=== PATIENT | female | born 1940 | race Caucasian/White ===

== ENCOUNTER 2021-11-12 14:22 | Outpatient (CLI) | payer OTHER, SELFPAY ==
[2021-11-12 14:34] LABS: Albumin* 4.5 g/dL (3.3-5.0); Chloride* 103 mmol/L (96-114); Potassium* 4.5 mmol/L (3.6-5.1); Sodium* 137 mmol/L (135-149)
[2021-11-12 14:36] LABS: Cholesterol* 300 mg/dL (90-199)
[2021-11-12 14:37] LABS: Alanine Aminotransferase* 13 U/L (4-35); Alkaline Phosphatase* 124 U/L (40-150); Aspartate Amino Transferase* 24 U/L (12-35); Bilirubin Total* 0.5 mg/dL (0.1-1.5); Blood Urea Nitrogen* 14 mg/dL (7-30); Carbon Dioxide* 24 mmol/L (20-32); Creatinine* 0.8 mg/dL (0.5-1.5); Estimated Glomerular Filt Rate 74 ml/min; Glucose* 93 mg/dL (60-115); Total Protein* 7.7 g/dL (6.0-8.3); Triglycerides* 158 mg/dL (40-149)
[2021-11-12 14:38] LABS: Calcium* 9.3 mg/dL (8.4-10.6); HDL Cholesterol* 76 mg/dL (>=50); LDL Cholesterol Calculated 192 mg/dL (<100)
== END 2021-11-12 14:23 | disposition home or self-care (01) ==
PROVIDERS: PCP Family Medicine; Visit Provider Family Medicine
DX: Z00.00 Encounter for general adult medical examination without abnormal findings (principal); E78.5 Hyperlipidemia, unspecified; I10 Essential (primary) hypertension
CPT/HCPCS: 80053; 80061

== ENCOUNTER 2023-01-05 14:48 | Outpatient (CLI) | payer OTHER, SELFPAY | END 2023-01-05 14:49 | disposition home or self-care (01) | PROVIDERS: PCP Physician Assistant Medical; Visit Provider Physician Assistant Medical | DX: E78.5 Hyperlipidemia, unspecified (principal); I10 Essential (primary) hypertension; M81.0 Age-related osteoporosis without current pathological fracture | CPT/HCPCS: 80053; 80061; 84443 ==

== ENCOUNTER 2023-08-31 10:03 | Outpatient (CLI) | payer OTHER, SELFPAY ==
--- NOTE | 2023-08-31 11:00 | CRLHL7_ITS ---
For Patients: As a result of the Century Cures Act, medical imaging exams and procedure reports are released immediately into your electronic medical record. You may view this report before your referring provider. If you have questions, please contact your health care provider. DXA BONE MINERAL DENSITY STUDY Reason for exam: Asymptomatic menopausal state. Osteopenia. Current height (in): 125. Weight (lb): 61. Menopause age: 57. Ethnicity: White. 1. Have you had a previous hip or vertebral fracture? No. 2. Have you had any fractures during your adult life which did not result from significant trauma (e.g., auto accident)? No. 3. Did either of your parents have a hip fracture? No. 4. Do you smoke? No. 5. Have you ever taken Glucocorticoids? No. 6. Do you have rheumatoid arthritis? No. 7. Do you have secondary osteoporosis? No. 8. Do you drink 3 or more alcoholic drinks per day? No. 9. Are you being treated for osteoporosis? No. 10. Have you ever taken any of the following medications: Actonel, Evista, Fosamax, Miacalcin, Reclast, Boniva, Forteo, HRT (i.e. estrogen/hormone therapy), Protelos, Prolia, Vitamin D, Calcium, other ??? please specify. ANSWER: Yes, Fosamax, vitamin D and calcium. 11. Do you have any of the following medical conditions: Anorexia or bulimia, asthma or emphysema, end stage renal disease, hyperparathyroidism, any seizure disorders, cancer, inflammatory bowel diseases, hysterectomy, other ??? please specify. ANSWER: No. 12. What was your maximum height (inches)? 61. 13. Do you perform weight bearing exercise regularly? No. 14. Do you regularly consume dairy products? No. 15. Do you drink caffeinated beverages? Yes. 16. At what age did your period start? 15. 17. Are you premenopausal? No. 18. How many full term pregnancies have you had? 3. 19. Have you ever missed your period for more than 6 months in a row (not including or menopause)? No. TECHNIQUE: Bone mineral density study was performed using the [employer]. FINDINGS: The results of the study expressed as bone mineral density (BMD) are as follows: Lumbar spine L1-L2, L4: BMD: 1.139 g/cm2. T-score: 1.0. Z-score: 3.8. Neck Left: BMD: 0.502 g/cm2. T-score: -3.1. Z-score: -0.6. Right: BMD: 0.500 g/cm2. T-score: -3.1. Z-score: -0.6. Total Left: BMD: 0.574 g/cm2. T-score: -3.0. Z-score: -0.7. Right: BMD: 0.608 g/cm2. T-score: -2.7. Z-score: -0.4. IMPRESSION: Osteoporosis. *Comparison exams done prior to 08/2019 were performed on different unit, [employer]. COMPARISON: Compared with scan of 01/30/2019, the bone mineral density has decreased by 1.5 percent at the spine and increased by 7.6 percent at the hip. Compared with scan of 11/26/2016, the bone mineral density has increased by 4.5 percent at the spine and decreased by 6.2 percent at the hip. Nimesh Michaud M.D. Diagnostic Radiologist [email or web address] SP/Dictated by: Nimesh Michaud MD @ 08/31/2023 12:19:00 PM (Electronically Signed)
== END 2023-08-31 10:04 | disposition home or self-care (01) ==
LOC: RAD 10:06
PROVIDERS: PCP Physician Assistant Medical; Visit Provider Physician Assistant Medical
DX: Z78.0 Asymptomatic menopausal state (principal); M85.89 Other specified disorders of bone density and structure, multiple sites; M81.0 Age-related osteoporosis without current pathological fracture
CPT/HCPCS: 77080

== ENCOUNTER 2023-09-22 09:56 | Outpatient (CLI) | payer OTHER, SELFPAY | END 2023-09-22 09:57 | disposition home or self-care (01) | LOC: NFLDREF 09-24 10:40 | PROVIDERS: PCP Physician Assistant Medical; Referring Provider Physician Assistant Medical; Visit Provider Physician Assistant Medical | DX: R79.89 Other specified abnormal findings of blood chemistry (principal); M81.0 Age-related osteoporosis without current pathological fracture | CPT/HCPCS: 82306 ==

== ENCOUNTER 2024-01-27 13:11 | Outpatient (CLI) | payer OTHER, SELFPAY | END 2024-01-27 13:12 | disposition home or self-care (01) | LOC: NFLDREF 01-30 19:24 | PROVIDERS: PCP Physician Assistant Medical; Referring Provider Physician Assistant Medical; Visit Provider Physician Assistant Medical | DX: R79.89 Other specified abnormal findings of blood chemistry (principal); I10 Essential (primary) hypertension; I25.10 Atherosclerotic heart disease of native coronary artery without angina pectoris; E78.2 Mixed hyperlipidemia; M51.362 Other intervertebral disc degeneration, lumbar region with discogenic back pain and lower extremity pain; Z13.29 Encounter for screening for other suspected endocrine disorder | CPT/HCPCS: 80053; 80061; 82306; 84443 ==

== ENCOUNTER 2024-06-26 14:35 | Outpatient (CLI) | payer OTHER, SELFPAY | END 2024-06-26 14:36 | disposition home or self-care (01) | LOC: FRMREF 14:35 | PROVIDERS: PCP Physician Assistant Medical; Visit Provider Family Medicine | DX: N17.9 Acute kidney failure, unspecified (principal) | CPT/HCPCS: 80048 ==

== ENCOUNTER 2024-07-25 10:52 | Outpatient (CLI) | payer OTHER, SELFPAY | END 2024-07-25 10:53 | disposition home or self-care (01) | LOC: NFLDREF 07-29 04:12 | PROVIDERS: PCP Physician Assistant Medical; Referring Provider Physician Assistant Medical; Visit Provider Family Medicine | DX: N30.90 Cystitis, unspecified without hematuria (principal) | CPT/HCPCS: 87086 ==

== ENCOUNTER 2024-08-11 14:42 | Emergency (ER) | payer OTHER, SELFPAY ==
[2024-08-11] VITALS (11 sets, daily range): BP systolic 177; BP diastolic 85; PULSE 71–87; RESP 16; TEMP 36.6; O2SAT 90–95
--- NOTE | 2024-08-11 14:57 | ED.NURSE ---
Stroke Code paged. MD with patient states that we are not ready to proceed to CT and is attempting to gather more information.
--- NOTE | 2024-08-11 15:11 | ED.GENADULT ---
HPI - General Adult General Chief complaint: Altered Mental Status Stated complaint: High BP, sent by [facility] Time Seen by Provider: 08/11/24 14:55 History of Present Illness HPI narrative: Arrives with confusion and unsteady gait. Son reports that the patient was recently treated for UTI and was confused during that time also . Son reports patient was fine upon waking this AM but suddenly became confused at 10 am. Patient is alert, ambulatory with unsteady gait, speech is clear but patient unable to self-report symptoms in triage and is disoriented to time and place. 84-year-old woman presenting to the emergency department with concern of confusion. I was contacted by primary care provider of concerns necessitating further workup. Suspicion is delirium. Arrives to this emergency department and stroke code was initially activated. This was canceled however as it appears that there are no symptoms beyond confusion and that this has been present intermittently for some time. Escalated over the last 2-3 days. No fevers have been noted. About 5 hours prior to arrival here in the emergency department after taking a new or changed Depression medication became increasingly angry and confused per her son. Today in clinic was confused being very upset when recommended to go to the hospital and believed she had been In a house at that time. 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 History also depression. Concerns expressed prior about delirium Versus dementia. Two weeks ago was given a course of nitrofurantoin with potential urinary tract infection; Admittedly this was a soft call. Micro grew out greater than 100,000 colonies of mixed g positives. No further workup then was done. This last year son moved in with her to care for her. He notes that she has been increasingly accusatory and agitated related to his cares. Related Data Home Medications ?Medication ?Instructions ?Recorded ?Confirmed aspirin 81 mg tablet,delayed 81 mg PO QDAY 11/11/21 08/11/24 release (Enteric Coated Aspirin) fluticasone 500 mcg-salmeterol 50 inhalation 06/26/24 08/11/24 mcg/dose blistr powdr for inhalation (Wixela Inhub) ipratropium 0.5 mg-albuterol 3 mg ml inhalation 06/26/24 08/11/24 (2.5 mg base)/3 mL nebulization soln Previous Rx's ?Medication ?Instructions ?Recorded losartan 50 mg-hydrochlorothiazide 1 tab PO QDAY #90 tabs 01/27/24 12.5 mg tablet pravastatin 20 mg tablet 40 mg (2 x 20 mg) PO QHS #90 tabs 07/20/24 mirtazapine 15 mg tablet 15 mg PO QHS #30 tabs 07/25/24 escitalopram oxalate 10 mg tablet 10 mg PO QDAY #30 tabs 08/10/24 (Lexapro) Allergies Allergy/AdvReac Type Severity Reaction Status Date / Time Penicillins Allergy Mild Rash Verified 08/11/24 15:00 doxycycline Allergy Unknown per Verified 08/11/24 15:00 outside records hydroxychloroquine Allergy Unknown per Verified 08/11/24 15:00 outside records Review of Systems Status of ROS: Reports: 6 or more systems reviewed and unremarkable except as noted in History and below [facility] Medical History Polymyalgia rheumatica ?M35.3 - Polymyalgia rheumatica (ICD-10) CAD (coronary artery disease) ?I25.10 - Atherosclerotic heart disease of [place] coronary artery without angina pectoris (ICD-10) Cervical radiculopathy ?M54.12 - Radiculopathy, cervical region (ICD-10) Low vitamin D level ?R79.89 - Other specified abnormal findings of blood chemistry (ICD-10) Spondylosis of thoracic spine ?M47.814 - Spondylosis without myelopathy or radiculopathy, thoracic region (ICD-10) DDD (degenerative disc disease), lumbar ?M51.36 - Other intervertebral disc degeneration, lumbar region (ICD-10) Osteoporosis ?M81.0 - Age-related osteoporosis without current pathological fracture (ICD-10) Hypertension ?I10 - Essential (primary) hypertension (ICD-10) Hyperlipidemia ?E78.5 - Hyperlipidemia, unspecified (ICD-10) History of colonic polyps (05/24/13) ?Z86.010 - Personal history of colonic polyps (ICD-10) Surgical History History of tubal ligation ?Z98.51 - Tubal ligation status (ICD-10) Family History Mother No problems noted. Brother Prostate cancer Sister Venous disease Heart disease Other Allergies Depression High blood pressure Social History Narrative: Former cigarette smoker Has 3 children What is your current living situation?: I presently have a place to live Problems where you live: no known problems In the past 12 months, utilities in danger of being shut off: no In past 12 months, lack of transportation kept you from medical appts, meetings, work, or getting things needed for daily living: no In the past 12 mos, have been you worried that your food would run out before you had money to buy more?: never true In the past 12 mos, the food you bought just didn't last and you didn't have money to buy more?: never true Smoking Status: Former smoker How often does anyone, including family, friends and others, physically hurt you: never How often does anyone, including family, friends and others, insult or talk down to you: never How often does anyone, including family, friends and others, threaten you with harm: never How often does anyone, including family, friends and others, scream or curse at you: never Exam Narrative: Exam Narrative: Maybe a little irritated. Overall pleasant. Does not appear to be in any distress otherwise. Quite alert. Able to cooperate with exam. Does appear confused and unable to clearly answer questions. Is articulating fluidly however. Is not demonstrating expressive aphasia. Moving all extremities without difficulty. Good strength throughout. Normal [id number]. Pupils are 2 mm and equal. Cranial nerves 2-12 are intact. Breathing easily. Heart in regular rate and rhythm. Lungs are clear. Abdomen is soft. Head is atraumatic. Neck is supple nontender back nontender. Const: Vital Signs, click to edit/add: Vital Signs - 24 hr 08/11/24 14:54 Temperature 97.8 F Pulse Rate [Pulse Oximeter] 74 Respiratory Rate 16 Blood Pressure [Ri ght Upper Arm] 177/85 H Pulse Oximetry 93 Oxygen Delivery Me thod Room Air Documenting provider has reviewed patient's vital signs: yes Course Vital Signs Vital signs: Initial Vital Signs Temperature 97.8 F 08/11/24 14:54 Temperature Source Temporal Artery Scan 08/11/24 14:54 Pulse Rate 74 08/11/24 14:54 Respiratory Rate 16 05/16/25 14:54 Blood Pressure 177/85 H 08/11/24 14:54 Blood Pressure Mean 115 H 08/11/24 14:54 Pulse Oximetry 93 08/11/24 14:54 Oxygen Delivery Method Room Air 08/11/24 14:54 Vital Signs Temperature 97.8 F 08/11/24 14:54 Pulse Rate 74 08/11/24 14:54 Respiratory Rate 16 08/11/24 14:54 Blood Pressure 177/85 H 08/11/24 14:54 Pulse Oximetry 93 08/11/24 14:54 Oxygen Delivery Method Room Air 08/11/24 14:54 Temperature 97.8 F 08/11/24 14:54 Pulse Rate 74 08/11/24 18:30 Respiratory Rate 16 08/11/24 14:54 Blood Pressure 177/85 H 08/11/24 14:54 Pulse Oximetry 90 08/11/24 18:30 Oxygen Delivery Method Room Air 08/11/24 14:54 Medications Administered Medications: Discontinued Medications Generic Name Dose Route Start Last Admin Trade Name Freq PRN Reason Stop Dose Admin Sodium Chloride 1,000 mls @ 1,000 mls/hr 08/11/24 15:08 08/11/24 18:45 0.9 % Sodium Chloride 1000 Ml IV 08/11/24 16:07 Infused .Q1H ONE Infusion Medical Decision Making MDM Narrative Medical decision making narrative: Given history of hyponatremia and urinary tract infection will certainly assess for this. I think this is more delirium or otherwise confusion. It sounds as though prior CVA had presented with some difficulty with articulation. It is possible that this is medication related though seemed kind of quick onset and has been having these fluctuating symptoms for some time. Think this fluctuating mental status is likely more related to underlying dementia and possibly exacerbated by CVA prior. IV is initiated. Will receive L of normal saline. CT head independent reviewed by me looks to show no acute abnormality. Labs are reassuring. No evidence of urinary tract infection either. Radiology over-read of CT as below INDICATION: Confusion COMPARISON: None TECHNIQUE: CT of the head without contrast. FINDINGS: Brain Parenchyma: Global cortical involutional changes. No acute infarct, acute intracranial hemorrhage, mass effect, or midline shift. 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 Periventricular and supraventricular white matter hypodensity, suggestive of chronic microvascular ischemic changes. Ventricles: Ventricular enlargement, commensurate with the degree of cortical involutional changes and sulcal prominence. Extra-axial Spaces: No abnormal fluid collection. Paranasal sinuses: Near complete opacification of the right maxillary sinus with hyperostosis of the maxillary sinus wall, consistent with sequela of chronic sinusitis. The remaining paranasal sinuses are clear. Orbits: Unremarkable Mastoid Sinuses: Unremarkable Cranium: No acute fracture Soft tissues: Unremarkable IMPRESSION: 1. No CT evidence of an acute intracranial process. 2. 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 3. Global cortical involutional changes and periventricular white matter hypodensities, suggestive chronic microvascular ischemic changes. Please note that all CT scans at this facility use dose modulation, iterative reconstruction, and/or weight-based dosing when appropriate to reduce radiation dose to as low as reasonably achievable. Dictated by Prasanna Ramires MD @ 08/11/2024 5:15:46 PM Over time in the emergency department continues to be relaxed, improved. Has been attended carefully by primary care provider. Might also benefit from geriatric psych input. Son appears appropriately attentive. May have more needs soon than can be provided at home. Appears as though has abrupt swings into this intense agitation. As a temporizing measure did discuss potential benefit of lorazepam though discussed also sedating effect. Son had described how she tends to react quite well to a moscato. Son describes significant and chronic anxiety. See patient discharge plan for further discussion I do not know if this episode today was brought about by a medication reaction or intolerance. I think it is hard to know at this point. It does sound as though anxiety is playing a role with some of these symptoms. Can certainly give you a medication that you can take at these times but remember that it can be sedating. Can prescribe this for you from [facility]. Lorazepam. I suppose this would be similar to your Moscato :) Please follow-up with your primary care provider to discuss further evaluation or what sort of cares will be necessary going forward. Your sodium was 130 today. This is not particularly abnormal for you. The fluids you got probably brought your sodium up to 132. Medical Records Medical records reviewed: Yes I reviewed the patient's medical records Lab Data Lab results reviewed: Yes I reviewed the patient's lab results Labs: Lab Results 08/11/24 08/11/24 Range/Units 15:08 15:10 WBC 10.47 (4.50-11.00) K/uL RBC 4.11 (4.00-5.20) m/uL Hgb 11.6 L (12.0-16.0) gm/dL Hct 35.3 (33.0-51.0) % MCV 86 (80-100) fL MCH 28 (26-34) pg MCHC 33 (32-36) gm/dL RDW Coeff of [place] 14.3 (11.5-15.5) % Plt Count 340 (140-440) K/uL Neut % (Auto) 60.5 (42.0-72.0) % Lymph % (Auto) 26.8 (20-44) % [place] % (Auto) 7.6 (0.0-11.0) % Eos % (Auto) 2.1 (0.0-7.0) % Baso % (Auto) 0.9 (0.0-3.0) % Neut # (Auto) 6.33 (1.7-7.0) K/uL Lymph # (Auto) 2.81 (0.90-2.90) K/uL [place] # (Auto) 0.80 (0.00-0.90) K/UL Eos # (Auto) 0.22 (0.00-0.50) K/uL Baso # (Auto) 0.09 (0.00-0.30) K/uL Abs Immat Gran (auto) 0.22 (0.00-0.30) K/uL Imm/Tot Granulo (auto) 2.1 % Sodium 130 L (135-149) mmol/L Potassium 3.7 (3.6-5.1) mmol/L Chloride 96 (96-114) mmol/L Carbon Dioxide 24 (20-32) mmol/L Anion Gap 10 (7-15) mEq/L BUN 21 (7-30) mg/dL Creatinine 1.1 (0.5-1.5) mg/dL Estimated GFR 49 ml/min Glucose 95 (60-115) mg/dL Calcium 9.4 (8.4-10.6) mg/dL Urine Color Yellow (Yellow) Urine Appearance Clear (Clear) Urine pH 6.5 (5.0-8.5) Ur Specific [place] 1.010 (1.000-1.030) Urine Protein Negative (Negative) Urine Glucose (UA) Negative (Negative) Urine Ketones Negative (Negative) Urine Blood Negative (Negative) Urine Nitrite Negative (Negative) Urine Bilirubin Negative (Negative) Urine Urobilinogen 0.2 (0.2-1.0) Ur Leukocyte Esterase Negative (Negative) Urine RBC 0-2 (0-2) Urine WBC 0-2 (0-5) Ur Squamous Epith Cells Few (None-Few) Urine Bacteria None (None) Discharge Plan Discharge Clinical Impression: Agitation, Confusion Patient Disposition: Home w/ Parent or Adult Condition: Improved Additional Instructions: I do not know if this episode today was brought about by a medication reaction or intolerance. I think it is hard to know at this point. It does sound as though anxiety is playing a role with some of these symptoms. Can certainly give you a medication that you can take at these times but remember that it can be sedating. Can prescribe this for you from [facility]. Lorazepam. I suppose this would be similar to your Moscato :) Please follow-up with your primary care provider to discuss further evaluation or what sort of cares will be necessary going forward. Your sodium was 130 today. This is not particularly abnormal for you. The fluids you got probably brought your sodium up to 132. Prescriptions: No Action losartan-hydrochlorothiazide 50-12.5 mg tablet 1 tab PO QDAY Qty: 90 3RF fluticasone propion-salmeterol [Wixela Inhub] 500-50 mcg/dose blister with device inhalation Patient Comments: [NO ORIGINAL SIG] ipratropium-albuterol 0.5 mg-3 mg(2.5 mg base)/3 mL solution for nebulization inhalation Patient Comments: [NO ORIGINAL SIG] escitalopram oxalate [Lexapro] 10 mg tablet 10 mg PO QDAY Qty: 30 3RF aspirin [Enteric Coated Aspirin] 81 mg tablet,delayed release (DR/EC) 81 mg PO QDAY mirtazapine 15 mg tablet 15 mg PO QHS Qty: 30 4RF pravastatin 20 mg tablet 40 mg PO QHS Qty: 90 0RF Rx Instructions: 2 daily at bedtime for cholesterol Follow Up/Referrals: Dyana Archer PA-C [Primary Care Provider, Family Practice] Stand Alone Forms: [employer] Info Instructions
[2024-08-11 15:40] LABS: Chloride* 96 mmol/L (96-114); Potassium* 3.7 mmol/L (3.6-5.1); Sodium* 130 mmol/L (135-149)
[2024-08-11 15:42] LABS: Basophils Absolute Auto 0.09 K/uL (0.00-0.30); Basophils Percent Auto 0.9 % (0.0-3.0); Eosinophils Absolute Auto 0.22 K/uL (0.00-0.50); Eosinophils Percent Auto 2.1 % (0.0-7.0); Hematocrit 35.3 % (33.0-51.0); Hemoglobin* 11.6 gm/dL (12.0-16.0); Immature Granulocytes Abs Auto 0.22 K/uL (0.00-0.30); Immature Granulocytes Pct Auto 2.1 %; Lymphocytes Absolute Auto 2.81 K/uL (0.90-2.90); Lymphocytes Percent Auto 26.8 % (20-44); Mean Corpuscular HGB Conc 33 gm/dL (32-36); Mean Corpuscular Hemoglobin 28 pg (26-34); Mean Corpuscular Volume 86 fL (80-100); Monocytes Percent Auto 7.6 % (0.0-11.0); Neutrophils Absolute Auto 6.33 K/uL (1.7-7.0); Neutrophils Percent Auto 60.5 % (42.0-72.0); Platelet Count* 340 K/uL (140-440); RDW Coefficient of Variation % 14.3 % (11.5-15.5); Red Blood Count 4.11 m/uL (4.00-5.20); White Blood Count* 10.47 K/uL (4.50-11.00)
[2024-08-11 15:43] LABS: Blood Urea Nitrogen* 21 mg/dL (7-30); Creatinine* 1.1 mg/dL (0.5-1.5); Estimated Glomerular Filt Rate 49 ml/min; Slide Review Reflex No
[2024-08-11 15:44] LABS: Anion Gap 10 mEq/L (7-15); Calcium* 9.4 mg/dL (8.4-10.6); Carbon Dioxide* 24 mmol/L (20-32); Glucose* 95 mg/dL (60-115)
[2024-08-11] MEDS: 0.9 % SODIUM CHLORIDE 1000 ml 1,000 ML IV (15:55)
--- NOTE | 2024-08-11 16:06 | CRLHL7_ITS ---
For Patients: As a result of the Cures Act, medical imaging exams and procedure reports are released immediately into your electronic medical record. You may view this report before your referring provider. If you have questions, please contact your health care provider. INDICATION: Confusion COMPARISON: None TECHNIQUE: CT of the head without contrast. FINDINGS: Brain Parenchyma: Global cortical involutional changes. No acute infarct, acute intracranial hemorrhage, mass effect, or midline shift. 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 Periventricular and supraventricular white matter hypodensity, suggestive of chronic microvascular ischemic changes. Ventricles: Ventricular enlargement, commensurate with the degree of cortical involutional changes and sulcal prominence. Extra-axial Spaces: No abnormal fluid collection. Paranasal sinuses: Near complete opacification of the right maxillary sinus with hyperostosis of the maxillary sinus wall, consistent with sequela of chronic sinusitis. The remaining paranasal sinuses are clear. Orbits: Unremarkable Mastoid Sinuses: Unremarkable Cranium: No acute fracture Soft tissues: Unremarkable IMPRESSION: 1. No CT evidence of an acute intracranial process. 2. 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 3. Global cortical involutional changes and periventricular white matter hypodensities, suggestive chronic microvascular ischemic changes. Please note that all CT scans at this facility use dose modulation, iterative reconstruction, and/or weight-based dosing when appropriate to reduce radiation dose to as low as reasonably achievable. Dictated by Prasanna Ramires MD @ 08/11/2024 5:15:46 PM (Electronically Signed)
[2024-08-11 16:11] LABS: Appearance Urine Clear (Clear); Bilirubin Urine Negative (Negative); Blood Urine Negative (Negative); Color Urine Yellow (Yellow); Glucose Urine Negative (Negative); Ketones Urine Negative (Negative); Leukocyte Esterase Urine Negative (Negative); Nitrite Urine Negative (Negative); Protein Urine Negative (Negative); Urobilinogen Urine 0.2 (0.2-1.0); pH Urine 6.5 (5.0-8.5)
[2024-08-11 16:17] LABS: RBC Urine 0-2 (0-2); Squamous Epithelial Cell Urine Few (None-Few); WBC Urine 0-2 (0-5)
== END 2024-08-11 18:55 | disposition home or self-care (01) ==
PROVIDERS: Emergency Provider Family Medicine; PCP Physician Assistant Medical
DX: R41.0 Disorientation, unspecified (principal); R45.1 Restlessness and agitation
CPT/HCPCS: 36415; 70450; 80048; 81001; 85025; 96360; 96361; 99284; J7030

== ENCOUNTER 2024-11-28 12:54 | Outpatient (CLI) | payer OTHER, SELFPAY | END 2024-11-28 12:55 | disposition home or self-care (01) | LOC: NFLDREF 11-29 12:30 | PROVIDERS: PCP Physician Assistant Medical; Referring Provider Physician Assistant Medical; Visit Provider Physician Assistant Medical | DX: E78.2 Mixed hyperlipidemia (principal); I10 Essential (primary) hypertension; E87.1 Hypo-osmolality and hyponatremia; F32.0 Major depressive disorder, single episode, mild; M79.89 Other specified soft tissue disorders; E55.9 Vitamin D deficiency, unspecified | CPT/HCPCS: 80053; 80061; 82306; 84443 ==